=== PATIENT | male | born 1965 | race Caucasian/White ===

== ENCOUNTER 2024-08-16 14:25 | Emergency (ER) | payer OTHER, SELFPAY ==
[2024-08-16 14:31] VITALS: BP 158/95
[2024-08-16 14:55] LABS: % Basophils 0.7 % (0-2); % Eosinophils 0.6 % (0-6); % Immature Granulocytes 0.9 % (0-0.5); % Lymphocytes 16.8 % (20.5-51.1); % Monocytes 7.2 % (1.7-9.3); % Neutrophils 73.8 % (42.2-75.2); Absolute Basophils 0.1 10^3/uL (0-0.2); Absolute Eosinophils 0.1 10^3/uL (0-0.7); Absolute Immature Granulocytes 0.2 10^3/uL (0-0.05); Absolute Lymphocytes 2.7 10^3/uL (1.2-3.4); Absolute Monocytes 1.2 10^3/uL (0.1-0.6); Absolute Neutrophils 11.8 10^3/uL (1.4-6.5); Hematocrit 47.8 % (39.0-52.0); Mean Corp Hgb Conc. 33.5 g/dL (33.0-37.0); Mean Corpuscular Hgb 28.9 pg (27.0-31.0); Mean Corpuscular Volume 86.4 fL (80.0-94.0); Mean Platelet Volume 10.8 fL (7.4-10.4); Nucleated Red Blood Cells % 0 % (-); Platelet Count 288 10^3/uL (130-400); Red Blood Cell Count 5.53 10^6/uL (4.70-6.10); Red Cell Dist. Width 13.8 % (11.5-14.5); Urine Albumin Negative (Neg - Trace); Urine Bilirubin Negative (Negative); Urine Character Clear (Clear); Urine Color Yellow; Urine Glucose Negative (Negative); Urine Ketone Negative (Negative); Urine Leukocyte Negative (Negative); Urine Nitrite Negative (Negative); Urine Occult Blood Negative (Negative); Urine Specific Gravity 1.015 (<1.030); Urine Urobilinogen Negative (Neg - 1+); White Blood Cell Count 16.1 10^3/uL (4.8-10.8)
[2024-08-16 15:06] LABS: ALT (SGPT) 28 U/L (0-50); AST (SGOT) 20 U/L (17-59); Albumin 4.7 g/dl (3.5-5.0); Alkaline Phosphatase 76 U/L (38-126); Blood Urea Nitrogen 19 mg/dl (9-20); Calcium 9.7 mg/dl (8.4-10.2); Carbon Dioxide 24 mmol/L (22-30); Chloride 107 mmol/L (98-107); Glucose 109 mg/dl (70-99); Potassium 4.4 mmol/L (3.5-5.1); Sodium 144 mmol/L (135-145); Total Bilirubin 0.4 mg/dl (0.2-1.3); Total Protein 7.1 g/dl (6.3-8.2); eGFR > 60.00
--- NOTE | 2024-08-16 16:44 | ED.GENMED ---
History of Present Illness
General
Chief Complaint: Musculo-Skeletal Complaint
Time Seen by Provider: 08/16/24 16:32
History of Present Illness
History of Present Illness:
58-year-old male with no known past medical history presents to the emergency department for evaluation of worsening left groin and left testicular pain that has been ongoing for the past 4 to 5 days. He states that he felt a pop when he was
lifting a heavy object at work but pain did not begin immediately thereafter. Gradually is worsened, now radiating to the lower abdomen. No prior abd surgeries. No fevers, chills, sweats, N/V/D, or back pain. Notes L thigh aching discomfort
Review of Systems
Review of Systems
Allergies reviewed?: Yes
All Other Systems: ROS reviewed and negative except as documented in HPI and ROS
Phy Exam
Physical Exam
Physical Exam:
GEN: Well appearing, NAD, WDWN
Eyes: PERRLA, EOMs intact, no scleral icterus
HENT: NCAT, oral mucosa moist
Lungs: CTAB, no wheezes, rales, rhonchi, normal chest wall excursion
Cardiac: RRR, no M/R/G, no peripheral edema. Radial pulses 2+ bilat
Abdomen: S, NT, ND, NABS, no masses or hepatosplenomegaly; No inguinal hernia/adenopathy, no palpable testicular swelling or masses
Neuro: AO x 3
MSK: No gross deformity or ecchymosis. No edema. No digital clubbing
Skin: No rashes, petechiae. Normal color, no pallor or jaundice.
Psych: Calm, cooperative, proper hygiene
Course
Orders/Labs/Results
Orders:
Orders
08/16/24 14:41
Complete Blood Count/With Diff Urgent
Comprehensive Metabolic Panel Urgent
Urinalysis Reflex To Culture Urgent
Date Specimen was Collected: 08/16/24
Time Specimen was Collected: 14:35
08/16/24 16:43
CT Abd/Pel (IV only)-DH only Urgent
Comment:
Reason For Exam: LLQ/L groin pain
Abnormal Lab Results
08/16/24
14:41
WBC 16.1 H 10^3/uL
(4.8-10.8)
MPV 10.8 H fL
(7.4-10.4)
Abs Immat Gran (auto) 0.2 H 10^3/uL
(0-0.05)
Absolute Neuts (auto) 11.8 H 10^3/uL
(1.4-6.5)
Absolute Monos (auto) 1.2 H 10^3/uL
(0.1-0.6)
Immature Gran % 0.9 H %
(0-0.5)
Lymphocytes % 16.8 L %
(20.5-51.1)
Glucose 109 H mg/dl
(70-99)
08/16/24 14:41
08/16/24 14:41
Vital Signs
Initial and Last Documented VS:
Initial Vital Signs
Temp Pulse Resp BP Pulse Ox
98.0 F 95 16 158/95 98
08/16/24 14:31 08/16/24 14:31 08/16/24 14:31 08/16/24 14:31 08/16/24 14:31
Last Documented Vital Signs
Temp Pulse Resp BP Pulse Ox
98.0 F 66 18 124/81 98
08/16/24 14:31 08/16/24 18:26 08/16/24 18:26 08/16/24 18:26 08/16/24 18:26
MDM/Problems Addressed
MDM/Problems Addressed:
Because the patient's pain is not clear at this time. Given that he had an acute injury while working involving heavy lifting is possible this is a lumbosacral radiculopathy however the pain pattern is very atypical for this. Penis and scrotum
exam is grossly benign 9 no clinical suspicion of inguinal hernia or epididymitis. Labs are unremarkable except for mild leukocytosis however because this is not clear. Recommend continued outpatient primary care follow-up, will trial a course of
NSAIDs
*Critical Care Note
Total Time (30-74mins, 75-104mins- exclusive of procedures): Not Applicable
ED Attending Note
-
Portions of this chart may have been created with voice recognition software.� Occasional wrong word or��sound alike� substitutions may have occurred due to the inherent limitations of voice recognition software.
Discharge Plan
Departure
Patient Disposition: Home (Routine Discharge)
Date of Disposition: 08/16/24
Time of Disposition: 18:19
Patient with high blood pressure during this ER visit?: No
Discharge Problem:
Left groin pain
Instructions: Radiculopathy (DC)
Prescriptions:
New
ketorolac 10 mg tablet
10 mg PO Q8H PRN (Reason: Pain) 5 Days Qty: 15 0RF
Referrals:
Portillo Trevizo MD [Family Provider] -
Interventions
Interventions:
*Risk Screen - Suicide Last Done: 08/16/24 14:31
*General Assessment Last Done: 08/16/24 16:53
*Neglect/Abuse Screening Last Done: 08/16/24 14:31
ED- Fall Risk Assessment Last Done: 08/16/24 16:53
*ED COVID-19 Vaccine History Last Done: 08/16/24 16:53
*Nursing Disposition Last Done: 08/16/24 18:27
ED-Musculoskeletal Assessment Last Done: 08/16/24 16:51
Discharge Date and Time
Discharge Date/Time: 08/16/24 18:30
Print Language: BRUNEIAN
[2024-08-16 16:58] VITALS: BMI 31.1
[2024-08-16 18:26] VITALS: BP 124/81
== END 2024-08-16 18:30 | disposition home or self-care (01) ==
LOC: EMR 14:25
PROVIDERS: Emergency Medicine; EMERGENCY PHYSICIAN Student in an Organized Health Care Education/Training Program; FAMILY PHYSICIAN Family Medicine
DX: R10.32 Left lower quadrant pain (principal); N50.812 Left testicular pain
CPT/HCPCS: 99284; 74177; 80053; 81003; 85025; Q9967